=== PATIENT | female | born 1995 | race African-American/Black ===

== ENCOUNTER 2018-03-19 05:48 | Emergency (ER) | payer MEDICAID ==
[~2018-03-19] VITALS: Ht 162.6 cm; Wt 79.0 kg
[2018-03-19 06:00] VITALS: BP 101/63
== END 2018-03-19 08:13 | disposition left against medical advice (07) ==
LOC: ER 07:58
DX: M79.10 Myalgia, unspecified site (principal); Z53.21 Procedure and treatment not carried out due to patient leaving prior to being seen by health care provider

== ENCOUNTER 2023-07-02 09:48 | Emergency (ER) | payer MEDICAID ==
[~2023-07-02] VITALS: Ht 162.6 cm; Wt 85.4 kg
[2023-07-02 09:51] VITALS: O2SAT 96
[2023-07-02] MEDS ORDERED: ACETAMINOPHEN 325MG TABLET PO ONE (10:15)
[2023-07-02] MEDS ORDERED: TOPUD PO (10:25)
[2023-07-02 10:41] VITALS: BP 126/70; PULSE 72; RESP 16; TEMP 98.1
== END 2023-07-02 11:09 | disposition home or self-care (01) ==
LOC: ER 09:48
DX: R07.89 Other chest pain (principal); F12.10 Cannabis abuse, uncomplicated; Z77.098 Contact with and (suspected) exposure to other hazardous, chiefly nonmedicinal, chemicals
CPT/HCPCS: 71045; 99283